=== PATIENT | female | born 2000 | race Caucasian/White ===

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

== ENCOUNTER 2020-01-09 10:03 | Outpatient (CLI) | payer MEDICAID, SELFPAY | END 2020-01-09 23:59 | disposition home or self-care (01) | LOC: ANHCOVIDDT 02-02 10:04 | PROVIDERS: Visit Provider Obstetrics & Gynecology | DX: Z01.812 Encounter for preprocedural laboratory examination (principal); Z11.59 Encounter for screening for other viral diseases | CPT/HCPCS: 87635; C9803; U0003 ==

== ENCOUNTER 2020-01-10 01:10 | Day surgery (SDC) | payer MEDICAID, SELFPAY ==
[2020-01-05 10:58] VITALS: BMI 18.5
[2020-01-09 15:58] LABS: SARS-CoV-2 RNA PCR Negative
[2020-01-10] VITALS (9 sets, daily range): BP systolic 95–127; BP diastolic 46–72; PULSE 55–92; RESP 10–20; TEMP 36.7–36.9; O2SAT 99–100
[2020-01-10] MEDS: LACTATED RINGERS 1,000 ML 30 ML IV CONT ×2 (06:40→08:59)
--- NOTE | 2020-01-10 06:41 | WPDANESEPPF ---
Anes - Initial Pre Proc Eval Procedure: Operation Date: 01/10/20 07:30 Proposed Procedures p Laparoscopic Right Ovarian Cystectomy - Wilmar Ramon MD Date/Time: 01/10/20 06:41 Surgeon: Wilmar Ramon MD Pre Op Diagnosis: Right Ovarian cyst Patient Data Age: 19 Gender: F Height: 5 ft 4 in Weight: 48.6 kg Allergies Allergy/AdvReac Type Severity Reaction Status Date / Time No Known Allergies Allergy Verified 01/05/20 10:48 Home Medications Medication Instructions Recorded Confirmed Type clonazepam 0.5 mg PO BID PRN 01/05/20 01/05/20 History hydrocodone-acetaminophen [[place]] 1 tablet PO Q6H PRN 01/05/20 01/05/20 History Laboratory Tests 01/09/20 09:00 SARS-CoV-2 RNA (RT-PCR) Pending Patient hx anesthesia problems: none Family hx anesthesia problems: none PMFSH Past Medical History Medical History (Updated 01/10/20 @ 06:43 by Fabian Lamb MD) Anxiety Depression Hearing impaired History of cholesteatoma Hypothyroidism Surgical History Surgical History (Updated 01/10/20 @ 06:43 by Fabian Lamb MD) H/O myringotomy Hx of tonsillectomy Social History Social History Smoking status: Never smoker Substance use: never Gender identity (if verbalized by the patient): Female Anes - Eval Final PreProcedure Day of Procedure 01/10/20 06:41 Patient weight: normal Heart: regular rate and rhythm Lungs: clear to auscultation Airway: Mallampati scale class II Neurological: alert and oriented Last oral intake: >/= 8 hours ASA classification: III Emergent: no Anesthetic plan: proceed Anesthesia type and monitoring: general ETT and standard monitoring Informed Consent: The patient's anesthetic plan and its attendant risks and benefits were discussed with the patient/family/POA. Questions were solicited and answers provided to the satisfaction of the patient/family/POA.
--- NOTE | 2020-01-10 07:24 | WPDHPUPDATE1 ---
History and Physical Update Update Date/Time: 01/10/20 07:24 To perform laparoscopic right ovarian cystectomy History and Physical has been reviewed, including an updated exam of the patient. There are NO changes in the patient's condition. Risks, benefits, and alternatives have been discussed and questions answered. Patient agrees to proceed with procedure.
--- NOTE | 2020-01-10 09:02 | P.OP_ITS ---
Procedure Note - Detailed Date of procedure: 01/10/20 Pre-op diagnosis: Right Ovarian cyst Post-op diagnosis: same (Endometriosis) Procedure performed: Laparoscopic ovarian cystectomy, resection and fulguration of endometriosis Description of procedure: The patient was taken the operating room. She was prepped and draped in the dorsal lithotomy position after induction of general anesthesia. A 5 mm left upper quadrant incision was made in the abdominal skin with a scalpel. A 5 mm trocar was inserted the intra-abdominal cavity under direct visualization of the scope. A 5 mm left lower quadrant incision was made with the scalp on the abdominal skin and a 5 mm trocar was inserted the intra- abdominal cavity under direct visualization of the scope. A 5 mm infraumbilical incision was made with scalpel and a 5 mm trocar was inserted into the intra- abdominal cavity under direct visualization of the scope. A right ovarian cystectomy was performed. This was done using sharp and blunt dissection. Cautery was also used. The cyst capsule was peeled out of cyst cavity. Abraded surfaces that were bleeding were cauterized. Hematoma was placed inside the cyst cavity to make completely hemostatic. Endometriosis in the posterior cul-de-sac was cauterized. Two lesions in this area were fulgurated. The right hemipelvis peritoneum was removed. This was done with sharp and blunt dissection. The ureter was identified and dissected out all the way down to the uterine artery from the pelvic brim. Interceed was placed in the right hemipelvis. The pelvis was irrigated with copious amounts of normal saline. The pneumoperitoneum was reduced. The trocars were removed. The patient was taken recovery room stable condition. Sponge lap and needle counts were correct x2. Anesthesia: GETA Surgeon: Wilmar Ramon MD Estimated blood loss (mL): 75 Drains: No Packing: No Complications: No immediate complications Condition: stable Disposition: PACU Findings: 7 cm right ovarian cyst, normal-appearing tubes and left ovary, 4 moderate to large size endometrial implants were in the posterior cul-de-sac. To the right hemipelvis, 2 in the deep posterior cul-de-sac.
--- NOTE | 2020-01-10 09:32 | SUR.PHASEI ---
01/10/2020 0932- MOTHER CALLED WITH UPDATE.
--- NOTE | 2020-01-10 09:48 | SUR.PHASEI ---
0948 01/10/2020 PATIENT CONTINUES TO RUB EYES DESPITE BEING INSTRUCTED SEVERAL TIMES ABOUT RISK OF CORNEAL ABRASION. COOL WASHCLOTH GIVEN.
[2020-01-10] MEDS: ONDANSETRON INJ 4 MG/2 ML VIAL IV PUSH (10:15)
== END 2020-01-10 10:25 | disposition home or self-care (01) ==
PROVIDERS: Visit Provider Obstetrics & Gynecology
PROC: (CPT 49320; principal; 2020-01-10 07:30)
DX: N83.11 Corpus luteum cyst of right ovary (principal); N80.3 Endometriosis of pelvic peritoneum; E03.9 Hypothyroidism, unspecified; F41.9 Anxiety disorder, unspecified; F32.9 Major depressive disorder, single episode, unspecified; F17.200 Nicotine dependence, unspecified, uncomplicated; Z80.49 Family history of malignant neoplasm of other genital organs; Z11.59 Encounter for screening for other viral diseases
CPT/HCPCS: 58662; 87635; 88305; A9270; C9803; J0131; J1100; J2250; J2405; J2704; J2710; J3010; J7120; Q9968; U0003

== ENCOUNTER 2021-10-23 21:47 | Observation (INO) | payer BC, SELFPAY ==
--- NOTE | 2021-10-23 21:47 | OBADM ---
This patient, Bina Alva, admitted to the OB room OB Post 113 for observation. Patient/family oriented to hospital policies and general routines including ID bracelet, bed and alarms, visiting hours, pain management, procedures, bathroom and other care routines, personal items, smoking policy, room service/diet, and visiting hours. Patient/Family are encouraged to report perceived risks to care and to ask questions if they do not understand what they are told or what they should do.
[2021-10-23 22:00] VITALS: BMI 22.6
[2021-10-23 22:04] VITALS: BP 121/83; PULSE 92
[2021-10-23 22:23] LABS: Add Urine Microscopic? YES; Amorphous Sediment Urine Few; Appearance Urine Cloudy (Clear); Bilirubin Urine Negative (Negative); Blood Urine Negative (Negative); Color Urine Yellow (Yellow); Glucose Urine UA Negative (Negative); Ketones Urine Negative (Negative); Leukocyte Esterase Ur Negative LEU/UL (NEGATIVE); Mucus Urine Rare /lpf; Nitrate Urine Negative (Negative); Protein Urine Negative (Negative); RBC Urine 0-2 /hpf (0-2); Specific Grav Ur 1.011 (1.001-1.035); Squamous Epithelial Cell Urine Few /hpf (Few); Urobilinogen Urine Negative mg/dL (<2.0); WBC Urine 0-3 /hpf (0-3)
[2021-10-23] MEDS: TERBUTALINE SULFATE 1 MG/ML VIAL 0.25 MG SUB-Q (23:28)
--- NOTE | 2021-10-27 18:08 | PM.OBTRLD ---
OB - Triage/Final Diagnosis Visit Information Date of evaluation: 10/23/21 Reason for evaluation: threatened labor Comments/Additional reasons for admission: I have assessed the risk for this patient, Bina Camargo Thrum, and determined that she would benefit from observation care. Evaluation Laboratory results: Laboratory Tests 10/23/21 22:07 Urine Color Yellow Urine Appearance Cloudy H Urine pH 6.0 Ur Specific [place] 1.011 Urine Protein Negative Urine Glucose (UA) Negative Urine Ketones Negative Ur Blood (Man) Negative Urine Nitrate Negative Urine Bilirubin Negative Urine Urobilinogen Negative Ur Leukocyte Esterase Negative Urine RBC 0-2 Urine WBC 0-3 Ur Squamous Epith Cells Few Amorphous Sediment Few H Urine Mucus Rare
--- NOTE | 2021-10-28 09:35 | PM.OBTRLD ---
OB - Triage/Final Diagnosis Visit Information Date of evaluation: 10/23/21 Reason for evaluation: threatened labor Comments/Additional reasons for admission: I have assessed the risk for this patient, Bina Camargo Thrum, and determined that she would benefit from observation care. Evaluation Laboratory results: Laboratory Tests 10/23/21 22:07 Urine Color Yellow Urine Appearance Cloudy H Urine pH 6.0 Ur Specific [place] 1.011 Urine Protein Negative Urine Glucose (UA) Negative Urine Ketones Negative Ur Blood (Man) Negative Urine Nitrate Negative Urine Bilirubin Negative Urine Urobilinogen Negative Ur Leukocyte Esterase Negative Urine RBC 0-2 Urine WBC 0-3 Ur Squamous Epith Cells Few Amorphous Sediment Few H Urine Mucus Rare
== END 2021-10-24 00:45 | disposition home or self-care (01) ==
PROVIDERS: Advanced Practice Midwife; Admitting Provider Obstetrics & Gynecology; Visit Provider Obstetrics & Gynecology
DX: O47.03 False labor before 37 completed weeks of gestation, third trimester (principal); Z3A.33 33 weeks gestation of pregnancy
CPT/HCPCS: 81001; 87086; 87088; 96372; G0378; G0379; J3105

== ENCOUNTER 2021-11-14 17:43 | Outpatient (CLI) | payer OTHER, SELFPAY ==
[2021-11-14 18:29] VITALS: BP 108/70; PULSE 82
[2021-11-14 18:30] VITALS: BMI 24.5
[2021-11-14 18:39] LABS: Bilirubin Urine Negative (Negative); Blood Urine Negative (Negative); Color Urine Yellow (Yellow); Glucose Urine UA Negative (Negative); Ketones Urine Negative (Negative); Leukocyte Esterase Ur 1+ LEU/UL (NEGATIVE); Nitrate Urine Negative (Negative); Protein Urine Negative (Negative); Urobilinogen Urine 0.2 mg/dL (<2.0)
[2021-11-14 18:40] VITALS: BP 110/70; PULSE 79
[2021-11-14 18:44] LABS: Add Urine Microscopic? YES; Appearance Urine Sl Cloudy (Clear)
[2021-11-14 18:47] LABS: Bacteria Urine Trace /hpf; Mucus Urine Rare /lpf; RBC Urine 0-2 /hpf (0-2); Squamous Epithelial Cell Urine Many /hpf (Few); WBC Urine 0-3 /hpf (0-3)
[2021-11-14 18:52] LABS: Sodium 135 mmol/L (137-145)
[2021-11-14 18:53] LABS: Alanine Aminotransferase 19 U/L (4-35); Albumin Level 3.5 g/dL (3.5-5.1); Alkaline Phosphatase 183 U/L (38-126); Anion Gap 6 mmol/L (8-16); Aspartate Amino Transferase 26 U/L (14-36); Bilirubin,Total 0.8 mg/dL (0.2-1.3); Blood Urea Nitrogen 4 mg/dL (7-17); Calcium 8.7 mg/dL (8.4-10.2); Carbon Dioxide 24 mmol/L (22-30); Chloride 105 mmol/L (98-107); Estimated CRCL calculation 128 ml/min; Estimated Glomerular Filt Rate > 60; Glucose 74 mg/dL (65-110); Potassium 3.6 mmol/L (3.4-5.0); Uric Acid 4.6 mg/dL (2.5-7.5)
[2021-11-14 18:55] LABS: Creatinine Urine 61.4 mg/dL; Total Protein Urine Random 15 mg/dL; Ur Ttl Prot Creatinine Ratio 0.24 mg/mg (0-0.20)
[2021-11-14 18:58] LABS: Basophils Absolute Auto 0.1 K/mm3 (0.0-0.1); Basophils Percent Auto 0.7 % (0.2-1.2); Eosinophils Absolute Auto 0.1 K/mm3 (0-0.3); Eosinophils Percent Auto 0.4 % (0-4.4); Hemoglobin 11.8 g/dL (12.0-15.0); Immature Granulocyte Percent A 2.2 % (0-0.5); Lymphocytes Absolute Auto 1.94 K/mm3 (0.9-3.2); Lymphocytes Percent Auto 14.1 % (18.3-44.2); Mean Corpuscular HGB Conc 32.8 g/dl (32-36); Mean Corpuscular Hemoglobin 28.1 pg (26-34); Mean Corpuscular Volume 85.7 fl (80-100); Mean Platelet Volume 11.5 fl (7.4-10.4); Monocytes Percent Auto 7.2 % (2.6-8.5); Neutrophils Absolute Auto 10.4 K/mm3 (1.3-6.7); Neutrophils Percent Auto 75.4 % (45.5-73.1); Platelet Count Result 254 k/mm3 (150-375); White Blood Count 13.8 K/mm3 (4.5-10.0)
[2021-11-14 19:00] VITALS: BP 115/71; PULSE 68
--- NOTE | 2021-11-14 19:58 | PC.NURSE ---
Dr. Ramon notified of patients status, instructed to discharge patient with instruction to keep OB appointment next week.
== END 2021-11-14 19:10 | disposition home or self-care (01) ==
LOC: ANHOBOP 17:48 → ANHOBPP 17:49
PROVIDERS: Visit Provider Obstetrics & Gynecology
DX: O13.9 Gestational [pregnancy-induced] hypertension without significant proteinuria, unspecified trimester (principal); Z3A.00 Weeks of gestation of pregnancy not specified
CPT/HCPCS: 36415; 59025; 80053; 81001; 82570; 84156; 84550; 85025; 87086; 87088; 99199

== ENCOUNTER 2021-11-18 16:26 | Observation (INO) | payer OTHER, SELFPAY ==
--- NOTE | 2021-11-18 17:49 | OBADM ---
This patient, Bina Alva, admitted to the OB room Labor/Delivery/Recovery 104 for observation. Patient/family oriented to hospital policies and general routines including ID bracelet, bed and alarms, visiting hours, pain management, procedures, bathroom and other care routines, personal items, smoking policy, room service/diet, and visiting hours. Patient/Family are encouraged to report perceived risks to care and to ask questions if they do not understand what they are told or what they should do.
--- NOTE | 2021-12-09 15:34 | PM.OBTRLD ---
OB - Triage/Final Diagnosis Visit Information Comments/Additional reasons for admission: I have assessed the risk for this patient, Bina Alva, and determined that she would benefit from observation care. Final Diagnosis (1) Second trimester bleeding: Code(s): O46.92 - Antepartum hemorrhage, unspecified, second trimester Status: Acute
== END 2021-11-18 17:30 | disposition home or self-care (01) ==
PROVIDERS: Admitting Provider Obstetrics & Gynecology; Visit Provider Obstetrics & Gynecology
DX: O26.853 Spotting complicating pregnancy, third trimester (principal); Z3A.37 37 weeks gestation of pregnancy
CPT/HCPCS: G0378; G0379

== ENCOUNTER 2021-11-27 12:36 | Inpatient (IN) | payer OTHER, SELFPAY ==
[2021-11-27] VITALS (50 sets, daily range): BP systolic 92–131; BP diastolic 48–82; PULSE 66–119; RESP 16; TEMP 36.6–37.2; O2SAT 87–100; BMI 25.3
--- NOTE | 2021-11-27 12:36 | LDADM ---
This patient, Bina Alva, was admitted to Labor/Delivery/Recovery 103 on 11/27/21 at 12:36. Plans for labor, pain management and were discussed with patient. Patient/family oriented to hospital policies and general routines including ID bracelet, bed and alarms, visiting hours, pain management, procedures, bathroom and other care routines, personal items, smoking policy, room service/diet and guest tray routines, infant security routines, and visiting hours. Patient/Family are encouraged to report perceived risks to care and to ask questions if they do not understand what they are told or what they should do. See OBIX for further documentation.
--- OUTSIDE RECORDS SUMMARY | 2021-11-27 15:18 | XMS_ITS ---
:2000 Author Care Team Providers Name Role Phone FRANCIS [place] Primary Care Provider [phone] Allergies Code Code System Name Reaction Severity Status Onset Grass ? ? Deactivated ? Pollen NKDA ? Medications Name Status Start Date Stop Date ? ? acetaminophen 325 mg tablet Completed ? 10/2020 amoxicillin 875 mg tablet Completed ? 2020 azithromycin 250 mg tablet Completed ? 11/08 TAKE 2 TABLETS BY MOUTH ON DAY 1, AND T HEN TAKE 1 TABLET BY MOUTH ONCE A DAY ON DAY 2 THROUGH DAY 5 clonazepam 0.5 mg tablet Completed ? 021 Euthyrox 25 mcg tablet Completed ? Euthyrox 50 mcg tablet Active ? Not avail able TAKE 1 TABLET BY MOUTH ONCE DAILY hydrocodone 5 mg-acetaminophen 325 mg Completed ? 12/03/2020 tablet ibuprofen 400 mg tablet Completed ? 12/04/1908/22 () 1 mg-20 mcg tablet Completed ? 12/03/2020 Take 1 tablet every day by oral route. meclizine 25 mg tablet Completed ? ondansetron HCl 4 mg tablet Completed ? 10/2020 oxycodone 5 mg/5 mL oral solution Completed ? 12/03/2020 Active ? Not available sulfamethoxazole 800 mg-trimethoprim Completed ? 12/03/2020 160 mg tablet Problems Name Status Onset Date Source ? Active 05/30/2021 ? Juma Thyroiditis Active 06/24/2021 ? Uterine Size for Dates D
--- OUTSIDE RECORDS SUMMARY | 2021-11-27 15:19 | XMS_ITS | Encounter Summary ---
:2000 Author Care Team Providers Name Role Phone Mallika Beard Primary Care Provider [phone] Reason for Visit OB visit OB [id number] EDC 12/10/2021 LMP 02/21/2021 Assessment and Plan 1. Routine care Discussion Note: None recorded.Patient educational handouts: No information available. Plan of Care Reminders Provider Appointments Ob Routine Ana Jodie 12/02/2021 MD Ameya 10:00AM ? Ob Routine Ana Th erese 12/09/2021 MD Ameya 10:45AM Lab None ? ? recorded. Referral None ? ? recorded. Procedures None ? ? recorded. Surgeries None ? ? recorded. Imaging None ? ? recorded. Medications Name Start Date ? ? Euthyrox 50 mcg tablet ? TAKE 1 TABLET BY MOUTH ONCE DAILY ? Medications Administered None recorded. Vitals Height Weight BMI Blood Pressure 5 ft 4 in 141 lbs 24.2 kg/m2 120/81 mm[Hg] Results Lab Results None recorded. Allergies Code Code System Name Reaction Severity Onset NKDA ? ? ? Problems
--- OUTSIDE RECORDS SUMMARY | 2021-11-27 15:19 | XMS_ITS | Encounter Summary ---
:2000 Author Care Team Providers Name Role Phone Mallika Beard Primary Care Provider [phone] Reason for Visit None recorded. Assessment and Plan 1. Uterine size for dates discre pancy ? US, obstetric, follow-up Discussion Note: None recorded.Patient educational handouts: No information available. Plan of Care Reminders Provider Appointments Ob Routine Ana Jodie 12/02/2021 MD Ameya 10:00AM ? Ob Routine Ana Th erese 12/09/2021 MD Ameya 10:45AM Lab None ? ? recorded. Referral None ? ? recorded. Procedures None ? ? recorded. Surgeries None ? ? recorded. Imaging [facility] Obstetric, Follow-up 10/08/2021 Medications Name Start Date ? ? Euthyrox 50 mcg tablet ? TAKE 1 TABLET BY MOUTH ONCE DAILY ? Medications Administered None recorded. Vitals None recorded. Results Lab Results None recorded. Allergies Code Code System Name Reaction Severity Onset NKDA ? ? ? Problems Name Status Onset Date Source ?
--- OUTSIDE RECORDS SUMMARY | 2021-11-27 15:19 | XMS_ITS | Encounter Summary ---
:2000 Author Care Team Providers Name Role Phone Mallika Beard Primary Care Provider [phone] Reason for Visit None recorded. Assessment and Plan 1. Reduced movement ? non-stress test Discussion Note: None recorded.Patient educational handouts: No information available. Plan of Care Reminders Provider Appointments Ob Routine Ana Jodie 12/02/2021 MD Ameya 10:00AM ? Ob Routine Ana Th erese 12/09/2021 MD Ameya 10:45AM Lab None ? ? recorded. Referral None ? ? recorded. Procedures None ? ? recorded. Surgeries None ? ? recorded. Imaging Non-stress [place] Test 10/23/2021 Medications Name Start Date ? ? Euthyrox 50 mcg tablet ? TAKE 1 TABLET BY MOUTH ONCE DAILY ? Medications Administered None recorded. Vitals None recorded. Results Lab Results None recorded. Allergies Code Code System Name Reaction Severity Onset NKDA ? ? ? Problems Name Status Onset Date Source ?
--- OUTSIDE RECORDS SUMMARY | 2021-11-27 15:19 | XMS_ITS | Encounter Summary ---
:2000 Author Care Team Providers Name Role Phone Mallika Cm Beard Primary Care Provider [phone] Reason for Visit OB problem Pt. c/o feeling hot, getting pale and th en sees stars. Assessment and Plan 1. Hypoglycemia Discussion Note: None recorded.Patient educational handouts: No [...] BMI Blood Pressure 5 ft 4 in 125 lbs 21.5 kg/m2 107/72 mm[Hg] Results Lab Results None recorded. Allergies Code Code System Name Reaction Severity Onset NKDA ? ? ? Problems
--- OUTSIDE RECORDS SUMMARY | 2021-11-27 15:19 | XMS_ITS | Encounter Summary ---
:2000 Author Care Team Providers Name Role Phone Mallika Beard Primary Care Provider [phone] Reason for Visit OB visit Assessment and Plan 1. Juma thyroiditis 2. Routine care Discussion Note: None recorded.Patient educational [...] BMI Blood Pressure 5 ft 4 in 132 lbs 22.7 kg/m2 96/61 mm[Hg] Results Lab Results None recorded. Allergies Code Code System Name Reaction Severity Onset NKDA ? ? ? Problems
--- OUTSIDE RECORDS SUMMARY | 2021-11-27 15:19 | XMS_ITS | Encounter Summary ---
:2000 Author Care Team Providers Name Role Phone Mallika Beard Primary Care Provider [phone] Reason for Visit OB visit OB [id number] EDC 12/10/2021 LMP 02/21/2021 Assessment and Plan Assessment Note Patient is __35_weeks . Dis cussed plan. 1. Routine care Discussion Note: None recorded.Patient [...] BMI Blood Pressure 5 ft 4 in 139 lbs 23.9 kg/m2 114/77 mm[Hg] Results Lab Results None recorded. Allergies Code Code System Name Reaction Severity Onset
--- OUTSIDE RECORDS SUMMARY | 2021-11-27 15:19 | XMS_ITS | Encounter Summary ---
:2000 Author Care Team Providers Name Role Phone Mallika Beard Primary Care Provider [phone] Reason for Visit OB visit Assessment and Plan Assessment Note Patient is ___weeks . Discu ssed plan. 1. Routine care Discussion Note: None [...] BMI Blood Pressure 5 ft 4 in 146 lbs 25.1 kg/m2 122/82 mm[Hg] Results Lab Results None recorded. Allergies Code Code System Name Reaction Severity Onset
--- OUTSIDE RECORDS SUMMARY | 2021-11-27 15:19 | XMS_ITS | Encounter Summary ---
:2000 Author Care Team Providers Name Role Phone Mallika Beard Primary Care Provider [phone] Reason for Visit None recorded. Assessment and [...] recorded. Surgeries None ? ? recorded. Imaging [facility] Obstetric, Follow-up 09/10/2021 Medications Name Start Date ? ? Euthyrox 50 mcg tablet ? TAKE 1 TABLET BY MOUTH ONCE DAILY ? Medications Administered None recorded. Vitals None recorded. Results Lab Results None recorded. Allergies Code Code System Name Reaction Severity Onset NKDA ? ? ? Problems Name Status Onset Date Source
--- OUTSIDE RECORDS SUMMARY | 2021-11-27 15:19 | XMS_ITS | Encounter Summary ---
:2000 Author Care Team Providers Name Role Phone Mallika Beard Primary Care Provider [phone] Reason for Visit OB visit Assessment and Plan 1. Routine care Discussion [...] BMI Blood Pressure 5 ft 4 in 135 lbs 23.2 kg/m2 108/71 mm[Hg] Results Lab Results None recorded. Allergies Code Code System Name Reaction Severity Onset NKDA ? ? ? Problems Name Status Onset Date Source ?
--- OUTSIDE RECORDS SUMMARY | 2021-11-27 15:19 | XMS_ITS | Encounter Summary ---
:2000 Author Care Team Providers Name Role Phone Mallika Cm Beard Primary Care Provider [phone] Reason for Visit OB visit Assessment and Plan 1. Routine care 2. Juma thyroiditis ? TSH, serum or plasma Discussion Note: None recorded.Patient educational handouts: No information available. Plan of Care Reminders Provider Appointments Ob Routine Naa Jodie 12/02/2021 MD Ameya 10:00AM ? Ob Routine Ana Th erese 12/09/2021 MD Ameya 10:45AM Lab TSH, Serum [facility] or Plasma 11/13/2021 Hospital (Lab) Referral None ? ? recorded. Procedures None ? ? recorded. Surgeries None ? ? recorded. Imaging None ? ? recorded. Medications Name Start Date ? ? Euthyrox 50 mcg tablet ? TAKE 1 TABLET BY MOUTH ONCE DAILY ? Medications Administered None recorded. Vitals Height Weight BMI Blood Pressure 5 ft 4 in 141 lbs 24.2 kg/m2 113/74 mm[Hg] Results Lab Results Date Name Specimen Result Interpretation Description Value Range Status Address ?
--- OUTSIDE RECORDS SUMMARY | 2021-11-27 15:19 | XMS_ITS | Encounter Summary ---
:2000 Author Care Team Providers Name Role Phone Mallika Cm Beard Primary Care Provider [phone] Reason for Visit OB visit Assessment and Plan 1. Routine care 2. Juma thyroiditis 3. Uterine size for dates discre pancy Discussion Note: None recorded.Patient educational handouts: No [...] BMI Blood Pressure 5 ft 4 in 131 lbs 22.5 kg/m2 124/83 mm[Hg] Results Lab Results None recorded. Allergies Code Code System Name Reaction Severity Onset
[2021-11-27 15:39] LABS: Basophils Absolute Auto 0.1 K/mm3 (0.0-0.1); Basophils Percent Auto 0.4 % (0.2-1.2); Eosinophils Absolute Auto 0.1 K/mm3 (0-0.3); Eosinophils Percent Auto 0.3 % (0-4.4); Hematocrit 36.8 % (37.0-47.0); Hemoglobin 11.9 g/dL (12.0-15.0); Immature Granulocyte Absolute 0.38 K/mm3 (0.00-0.031); Immature Granulocyte Percent A 2.2 % (0-0.5); Lymphocytes Absolute Auto 1.54 K/mm3 (0.9-3.2); Lymphocytes Percent Auto 8.9 % (18.3-44.2); Mean Corpuscular HGB Conc 32.3 g/dl (32-36); Mean Corpuscular Hemoglobin 27.9 pg (26-34); Mean Corpuscular Volume 86.2 fl (80-100); Mean Platelet Volume 11.5 fl (7.4-10.4); Monocytes Absolute Auto 1.1 K/mm3 (0.1-0.6); Monocytes Percent Auto 6.4 % (2.6-8.5); Neutrophils Absolute Auto 14.2 K/mm3 (1.3-6.7); Neutrophils Percent Auto 81.8 % (45.5-73.1); Platelet Count Result 233 k/mm3 (150-375); Red Blood Count 4.27 M/mm3 (4.2-5.4); Red Cell Distribution Width 14.4 % (11.5-14.5); White Blood Count 17.3 K/mm3 (4.5-10.0)
[2021-11-27] MEDS: fentaNYL CITRATE INJ (*CRX) 100 MCG/2 ML VIAL 50 MCG IV PUSH (15:39)
--- NOTE | 2021-11-27 15:58 | WPDOBADMIT ---
Obstetrics - Admit Note Admission Note: record reviewed. No pertinent additions to the history and/or any subsequent changes in the physical findings that are not consistent with the expected course of the were found. pt admitted in labor Additions to the history and/or subsequent changes in the physical findings follow. None.
--- NOTE | 2021-11-27 17:28 | WPDANESEPP ---
Anes - Eval Pre Procedure Procedure: labor epidural Date/Time: 11/27/21 17:28 Surgeon: bill Pre Op Diagnosis: Labor Patient Data Age: 21 Gender: F Height: 1.63 m Weight: 67 kg Last Vital Signs Temp 36.6 C 11/27/21 15:42 Pulse 98 11/27/21 17:15 BP 122/74 11/27/21 17:15 Allergies Allergy/AdvReac Type Severity Reaction Status Date / Time grass pollen Allergy Itching Verified 11/12/21 14:51 Home Medications Medication Instructions Recorded Confirmed Type levothyroxine 75 mcg PO DAILY 11/12/21 11/27/21 History Laboratory Tests 11/27/21 11/27/21 11/27/21 15:33 15:33 15:33 WBC 17.3 K/mm3 H K/mm3 (4.5-10.0) RBC 4.27 M/mm3 M/mm3 (4.2-5.4) Hgb 11.9 g/dL L g/dL (12.0-15.0) Hct 36.8 % L % (37.0-47.0) MCV 86.2 fl fl (80-100) MCH 27.9 pg pg (26-34) MCHC 32.3 g/dl g/dl (32-36) RDW 14.4 % % (11.5-14.5) Plt Count 233 k/mm3 k/mm3 (150-375) MPV 11.5 fl H fl (7.4-10.4) Immature Gran % (Auto) 2.2 % H % (0-0.5) Neut % (Auto) 81.8 % H % (45.5-73.1) Lymph % (Auto) 8.9 % L % (18.3-44.2) [place] % (Auto) 6.4 % % (2.6-8.5) Eos % (Auto) 0.3 % % (0-4.4) Baso % (Auto) 0.4 % % (0.2-1.2) Lymph # (Auto) 1.54 K/mm3 K/mm3 (0.9-3.2) [place] # (Auto) 1.1 K/mm3 H K/mm3 (0.1-0.6) Eos # (Auto) 0.1 K/mm3 K/mm3 (0-0.3) Baso # (Auto) 0.1 K/mm3 K/mm3 (0.0-0.1) Abs Immat Gran (auto) 0.38 K/mm3 H K/mm3 (0.00-0.031) Absolute Neuts (auto) 14.2 K/mm3 H K/mm3 (1.3-6.7) Absolute Nucleated RBC 0.0 K/mm3 K/mm3 (0.0-0.012) Nucleated RBC % 0.0 % % (0.0-0.2) RPR Pending Blood Type A Positive Antibody Screen Negative Patient hx anesthesia problems: none Family hx anesthesia problems: none Results Review: All pre-operative results and documents have been reviewed as part of the pre-operative evaluation. [facility] Past Medical History Medical History (Updated 01/10/20 @ 06:43 by Fabian Lamb MD) Anxiety Depression Hearing impaired History of cholesteatoma Hypothyroidism Surgical History Surgical History (Updated 01/10/20 @ 06:43 by Fabian Lamb MD) H/O myringotomy Hx of tonsillectomy Family History Family History (Updated 11/12/21 @ 14:58 by Lina Ward RN) Mother History of blood clots Hypothyroidism Grandparent Cerebrovascular accident Grandparent Acute myocardial infarction Grandparent Prostate carcinoma Heart disease Grandparent Breast cancer in female Social History Social History Smoking status: Current every day smoker Tobacco type: e-cigarettes/vaping Second hand tobacco smoke exposure: Yes Substance use: never Gender identity (if verbalized by the patient): Female Spiritual care concerns: No Exam Day of Procedure 11/27/21 17:28
[2021-11-27] MEDS: fentaNYL CITRATE INJ (*CRX) 100 MCG/2 ML VIAL IV PUSH (17:53)
[2021-11-27] MEDS: OXYTOCIN 30 UNITS/NS 500 ML 30 UNITS/500 ML BAG 999 UNITS IV CONT (19:45)
[2021-11-27] MEDS: METHYLERGONOVINE MALEATE 0.2 MG/ML VIAL IM (19:55)
[2021-11-27] MEDS: CARBOPROST TROMETHAMINE 250 MCG/ML AMPUL IM (20:01)
--- NOTE | 2021-11-27 20:14 | PM.OBPRVD ---
OB - Delivery Note Procedure Delivery date: 11/27/21 Procedure: Vaginal delivery of female . Mom and baby stable. Skin to skin and initiated. Delivery augmentation: Rupture of Membranes (Clear fluid) Delivery monitor: External FHT and External Uterine Route of delivery: Laceration Description: None Specimen: No Quantitative Blood Loss (ml): 500 Anesthesia type: None Disposition: Floor [place] Baby Date of : 11/27/21 Time of : 19:40 Weeks of gestation at delivery: 38 gender: Female presentation: vertex position: Right Occiput Anterior Placenta delivery description: Spontaneous Cord Vessel Description: 3 Vessels, Clamped/Cut and Delayed Cord Clamping score one minute: 9 score five minutes: 9 Narrative: Uterine atony noted after delivery of placenta. Fundal massage. Cytotec, Methergine, and hemabate given. Uterus then firm. Mother and baby in stable condition.
[2021-11-27] MEDS: OXYTOCIN 30 UNITS/NS 500 ML 30 UNITS/500 ML BAG 125 UNITS IV CONT (20:15)
[2021-11-27] MEDS: ONDANSETRON INJ 4 MG/2 ML VIAL IV PUSH (20:43)
[2021-11-27] MEDS: miSOPROStol 200 MCG TABLET 1000 MCG (20:43)
[2021-11-27] MEDS: IBUPROFEN 600 MG TABLET PO (22:18)
[2021-11-27] MEDS: WITCH HAZEL 40 PADS 1 PAD TOPICAL (22:18)
--- NOTE | 2021-11-27 22:40 | OBPPTRN ---
Patient transferred to post room #279 via W/C. Support person present. Oriented to unit, room, information board, rooming in, admission packet and security measures. Patient verbalizes understanding.
[2021-11-27] MEDS: BENZOCAINE 20% AER SPR (*SP) 56 GM CAN 1 SPRAY TOPICAL (22:54)
[2021-11-28 04:00] VITALS: BP 111/71; PULSE 76; RESP 20; TEMP 36.7
[2021-11-28 05:39] LABS: Hematocrit 35.3 % (37.0-47.0); Hemoglobin 11.8 g/dL (12.0-15.0)
--- NOTE | 2021-11-28 07:42 | PM.OBPNVD ---
OB - PN: Subj Subjective Date/time seen: 11/28/21 07:42 Patient comments: no complaints, pain well controlled, incisional pain, tolerating diet and flatus present OB - PN: Obj Data Labs CBC & Chem 7: 11/28/21 04:12 Labs: Laboratory Results - last 24 hr 11/27/21 11/27/21 11/28/21 15:33 15:33 04:12 WBC 17.3 H RBC 4.27 Hgb 11.9 L 11.8 L Hct 36.8 L 35.3 L MCV 86.2 MCH 27.9 MCHC 32.3 RDW 14.4 Plt Count 233 MPV 11.5 H Immature Gran % (Auto) 2.2 H Neut % (Auto) 81.8 H Lymph % (Auto) 8.9 L [place] % (Auto) 6.4 Eos % (Auto) 0.3 Baso % (Auto) 0.4 Lymph # (Auto) 1.54 [place] # (Auto) 1.1 H Eos # (Auto) 0.1 Baso # (Auto) 0.1 Abs Immat Gran (auto) 0.38 H Absolute Neuts (auto) 14.2 H Absolute Nucleated RBC 0.0 Nucleated RBC % 0.0 Blood Type A Positive Antibody Screen Negative OB - PN A/P Plan day: 1 Plan: routine care Comments: No problems, routine care Time Spent With Patient Time: Total time spent is greater than 50% in coordination of care (as documented) at patient's floor/unit and/or counseling patient: Exam Const: General: comfortable, no acute distress and alert Resp: Effort & Inspection: normal respiratory effort Auscultation: no crackles, no rales and no rhonchi Cardio: Rate: regular rate Heart sounds: no click, no murmurs and no rubs GI: Inspection: non-distended GI Palp: No Tenderness to palpation present (GI) Auscultation: normal bowel sounds Other: Incision - CDI Extrem: General: normal to inspection, no pedal edema and no calf tenderness
[2021-11-28] MEDS: LEVOTHYROXINE SODIUM 75 MCG TABLET PO (07:46)
[2021-11-28] MEDS: IBUPROFEN 600 MG TABLET PO ×2 (07:46→19:27)
[2021-11-28] MEDS: DOCUSATE SODIUM 100 MG CAPSULE PO (07:47)
[2021-11-28] MEDS: MULTIVIT/MIN/PREN/FOL AC/IRON TABLET 1 TAB PO (07:47)
[2021-11-28 09:10] VITALS: BP 110/64; PULSE 78; RESP 16; TEMP 37; O2SAT 99
[2021-11-28 12:06] LABS: Rapid Plasma Reagin Non-Reactive (NonReactive)
[2021-11-28 12:40] VITALS: BP 122/77; PULSE 83; RESP 18; TEMP 36.5; O2SAT 98
--- NOTE | 2021-11-28 14:51 | PC.NURSE ---
[id number] 1025 Introductions were made, then consulted with patient to assess needs related to . Mother led the conversation with her experience feeding her infant so far. Mother works well with her infant with encouragement and education. Encouraged understanding of the benefits of skin to skin (unwrapping infant and placing vertically on her chest), responsive feeding and how to watch for early feeding signs, frequency of feeding on demand about every 8-12 times in 24 hours (every 2-3 hours), milk production, duration of feeding, signs of adequate intake/output and how to record on the feeding sheet. Reviewed positioning and ear, shoulder, hip alignment, supporting the breast, asymmetrical latch (off-center), and leading with the chin with a big open side gape. Infant latched optimally to the right breast using cross cradle positioning. would suck for a minute, then detach. Infant performed this way for 3 attempts. attempted to the left breast using football position with no successful latch. Infant latched optimally to the left breast in cross cradle position. Education given to mother of how to visualize suck/swallow ratios and drinking at the breast. was able to maintain latch without discomfort to mother. Nipple care reviewed with optimal latch and good positioning. Reminding mother of comfort measures of healing with a warm and wet washcloth to rinse breast, then leave open to air-dry as needed. Reviewed good handwashing when or touching the breast/nipples to prevent infection. Resources used to facilitate learning were used with the mom and baby guide. Mother voiced understanding of responsive feedings, stimulating with skin to skin, hand expressed colostrum, touch, talking to infant to encourage if it has been 2 -3 hours since the start of the last , to call if infant does not latch or there is discomfort with . Reported to the primary RN.
[2021-11-28] MEDS: ACETAMINOPHEN 325 MG TABLET 650 MG PO (19:26)
[2021-11-28 19:30] VITALS: BP 99/65; PULSE 85; RESP 18; TEMP 36.7; O2SAT 100
--- NOTE | 2021-11-29 07:27 | P.PNOB_ITS ---
OB - PN: Subj Subjective Date/time seen: 11/29/21 07:27 Patient comments: no complaints baby status: doing well [place] feeding status: exclusively breast feeding OB - PN: Obj Data Labs CBC & Chem 7: 11/28/21 04:12 Labs: Laboratory Results - last 24 hr 11/27/21 15:33 RPR Non-reactive OB - PN A/P Plan day: 2 Plan: routine care and discharge home Time Spent With Patient Time: Total time spent is greater than 50% in coordination of care (as documente d) at patient's floor/unit and/or counseling patient: Review of Systems Review of Systems: All systems reviewed & are unremarkable except as noted in HPI and below Exam Const: General: cooperative, healthy appearing and comfortable
--- NOTE | 2021-11-29 07:28 | PM.OBDSVD ---
DS: Admitting Diagnosis Discharge Date 11/29/21 Admitting Diagnosis labor OB - DS: Summary OB Procedures : None OB Procedures Intrapartum: Spontaneous Vag Delivery and Uterine exploration OB Procedures: : None Time Spent with Patient Time attestation: Total time spent providing and/or coordinating discharge services: DS: Data Data Completed and Pending Labs on day of discharge: Labs from last 24 hours 11/27/21 15:33 RPR Non-reactive Discharge Plan Discharge Attending physician on discharge: Wilmar Ramon Discharging Clinician: Silvia Rouse Patient Disposition: Home, Self-Care Activity: pelvic rest Diet: regular Patient Instructions: Antibiotic Form Stand Alone Forms: General Discharge Information Follow-up/Referrals: Silvia Rouse, NIYAM [Certified Nurse Trestle Builder] - 4 Weeks Discharge Medications: Continued levothyroxine 50 mcg Capsule 75 mcg PO DAILY RF: 0 Date of admission: 11/27/21 12:36 Primary Care Provider: PHYSICIAN NOT ON STAFF,NONSTAFF Admitting Provider: Ana Hou Attending physician on admission: Ana Hou Condition: Stable
[2021-11-29 07:50] VITALS: BP 133/73; PULSE 80; RESP 18; TEMP 36.2; O2SAT 98
[2021-11-29] MEDS: IBUPROFEN 600 MG TABLET PO (08:19)
[2021-11-29] MEDS: DOCUSATE SODIUM 100 MG CAPSULE PO (08:20)
[2021-11-29] MEDS: MULTIVIT/MIN/PREN/FOL AC/IRON TABLET 1 TAB PO (08:20)
[2021-11-29] MEDS: LEVOTHYROXINE SODIUM 75 MCG TABLET PO (08:21)
--- NOTE | 2021-11-29 16:23 | PC.NURSE ---
[phone] Mother led the conversation with her experience and plan to feed her so far and her ability to independently latch optimally without discomfort. Reminded parents to use good handwashing technique to prevent infection. Mother is feeding appropriately for growth of and understands stimulating to eat if needed. Infant has had appropriate feedings in the last 24 hours meets the outcomes for weight, output and jaundice at this time. Mother states she is confident to continue effectively her infant at home or when to call for assistance and denies any additional assistance or education at this time. Reinforced understanding of milk production, transition of milk, signs of adequate intake, prevention/relief of engorgement, responsive after visualizing feeding cues, the different methods of stimulating infant to breastfeed 2-3 hours after the start of the last feeding, community resources, medication information reviewed per [employer] and when to call a provider using the resource of the mom and baby guide/[facility] website. Mother voiced understanding of the education shared. Reported to the primary RN.
[2021-11-30 09:32] VITALS: BP 107/71; PULSE 79; RESP 20; TEMP 37.1; O2SAT 100
== END 2021-11-29 11:35 | disposition home or self-care (01) | DRG 560 ==
LOC: ANHOB2 11-29 09:57 → ANHLDR 11-29 16:12
PROVIDERS: Advanced Practice Midwife; Admitting Provider Obstetrics & Gynecology; Visit Provider Obstetrics & Gynecology
DX: O99.284 Endocrine, nutritional and metabolic diseases complicating childbirth (principal); Z37.0 Single live birth; Z3A.38 38 weeks gestation of pregnancy; E03.9 Hypothyroidism, unspecified; O36.8330 Maternal care for abnormalities of the fetal heart rate or rhythm, third trimester, not applicable or unspecified
CPT/HCPCS: 36415; 85014; 85018; 85025; 86592; 86850; 86900; 86901; A9270; J2210; J2405; J2590; J3010